=== PATIENT | male | born 1940 | race Caucasian/White ===

== ENCOUNTER 2025-01-09 23:57 | Emergency (ER) | payer MEDICARE, OTHER, SELFPAY ==
[2025-01-10 00:01] VITALS: BP 142/79; PULSE 64; RESP 14; TEMP 36.9; O2SAT 95
--- NOTE | 2025-01-10 00:29 | ED_ITS ---
HPI - Fall General Chief Complaint: Fall Stated Complaint: EYEBROW LAC S/P GLF Time Seen by Provider: 01/10/25 00:14 History of Present Illness HPI Narrative: 84-year-old male with a past medical history including advanced Alzheimer's dementia, hypertension and chronic kidney disease. Presents to the ED from his memory care facility at [facility] in a unwitnessed ground level fall. Patient sustained a small laceration to the left supraorbital region around his left eyebrow. No loss of consciousness, patient was found by nursing staff. He is not any blood thinners on the prison report and medication sheet. Patient is not complaining of any pain is acting inappropriate his normal state of health according to the son was present at bedside for collateral formation. They recently moved here from [place] and he has changed memory care unit secondary to viral and aggression outbursts at the original location. He has been acting fine and without any complaints. No reported mental status changes, blood sugar free EMS was 95. Patient has an isolated injury to his left eyebrow, previous skin tear to his left elbow that is well bandaged and healing appropriately through secondary intent. Related Data Allergies Allergy/AdvReac Type Severity Reaction Status Date / Time aspirin Allergy Unknown Unknown Verified 01/10/25 00:39 NSAIDS (Non-Steroidal Allergy Unknown Unknown Verified 01/10/25 00:39 Anti-Inflamma Review of Systems Review of Systems: ROS unobtainable: Yes unobtainable due to medical condition Exam Narrative: GENERAL: [Well-appearing, well-nourished, and in no acute distress.] HEAD: Normocephalic, left-sided supraorbital ridge laceration is approximately 1.0 cm in length, bleeding controlled with direct pressure. Musculature layer exposed but no deep tissue involvement. Clean wound. EYES: [PERRLA and EOMI.] ENT: Nares clear, no rhinorrhea or epistaxis. Mucous membranes moist. NECK: Supple. CHEST: [Clear to auscultation. No respiratory distress.] HEART: [Regular rate and rhythm]. No murmur heard. [Normal peripheral pulses.] ABDOMEN: [Soft, nondistended], [nontender], [No rigidity or guarding] EXTREMITIES: Normal range of motion. [No edema.] SKIN: Facial laceration as described above, skin tear to his left elbow that is not new, well healing with secondary intent. Granulation tissue appropriate. No wound dehiscence or signs of infection. NEURO: [No focal deficits]. Alert and oriented at his baseline, opening his eyes, pupils are equal reactive, answers questions. PSYCH: [Normal mood and affect.] Course Vital Signs Vital signs: Vital Signs Temperature 98.5 F 01/10/25 00:01 Pulse Rate 64 01/10/25 00:01 Respiratory Rate 14 01/10/25 00:01 Blood Pressure 142/79 H 01/10/25 00:01 Pulse Oximetry 95 01/10/25 00:01 Temperature 98.5 F 01/10/25 00:01 Pulse Rate 64 01/10/25 00:01 Respiratory Rate 14 01/10/25 00:01 Blood Pressure 142/79 H 01/10/25 00:01 Pulse Oximetry 95 01/10/25 00:01 Procedures Laceration Laceration 1: Date: 01/10/25 Time: 01:54 Site: face Side (If applicable): left Size (cm): 1.0 Description: linear Depth: simple, single layer Local Anesthetic: lidocaine 1% Amount of anesthesia used (mL): 3 Pre-repair: wound explored, irrigated and deep structures intact ====== Skin Level ====== ====== Subcutaneous Layer ====== Subcutaneous layer closed with: chromic gut Size: 5-0 Number of sutures: 1 Technique: running ====== Muscle Layer ====== ====== Tendon Layer ====== MDM - Fall MDM Narrative Medical decision making narrative: 84-year-old male with history of advanced dementia, hypertension, chronic kidney disease. Presents with a ground level fall with laceration to his left eyebrow. Bleeding controlled with direct pressure. Patient is acting appropriately and at his baseline mentation. He is responding to questions and opening his eyes. Family is at bedside states that this is his normal mental exam without any concern changes today. He has been doing well at his new memory care facility otherwise. Did also have a recent fall with left elbow injury and skin tear that is well healing. He has normal vital signs here no tachycardia, fever or hypoxia. His examination shows the 1 cm laceration to his left eyebrow, healing skin tear, no new or obvious focal deficits, at his baseline mentation. Suspicion for intracranial pathology is low but given his age and risk factors after evaluate for skull fracture, intraparenchymal injury, brain bleed. He has not any blood thinners. CT of the head and cervical spine was ordered. He was tetanus was up-to-date here. Wound will be repaired with 5-0 Vicryl suture after analgesia obtained with lidocaine gel. CT scan showed no intracranial hemorrhage, mass effect, herniation or acute intracranial findings. CT of the cervical spine shows no acute cervical abnormalities. He has a mild endplate deformity of T3 which does not appear acute. Patient is neurovascular intact, able to ambulate here in the emergency department, patient's pain is under control and laceration was repaired at bedside. Family is comfortable driving him home. Patient's family's questions were answered and he was given discharge instructions and return instructions on his wound. Medical Records Attestation: I reviewed the patient's medical records. Imaging Data Attestation: I personally reviewed and interpreted this imaging study as follows: Radiologist's impression: No acute intracranial process. No acute cervical spine fracture. Age indeterminate mild endplate wedging of T3 Discharge Plan Discharge Clinical Impression: Ground-level fall, CHI (closed head injury), Laceration of eyebrow, left, Dementia Patient Disposition: NH Halfway/Asst Living Condition: Stable Instructions: Antibiotic Form, Laceration (ED), Head Injury (ED), Care For Your Absorbable Stitches (ED) Additional Instructions: You have a small laceration of the left eyebrow that was repaired with absorbable stitches. CT scan shows no intracranial process. Normal CT cervical spine. There is some mild endplate wedging of T3 which does not appear new. Follow-up for wound check in 10-14 days and suture removal. Tylenol and ibuprofen for any residual pain. Return with any new or worsening concerns. Patient Language: [place] Arabian Follow-up/Referrals: Yuliet,Brody Dacosta MD [Primary Care Provider] - Stand Alone Forms: Group Home Discharge Time of Disposition: 01:55
--- OUTSIDE RECORDS SUMMARY | 2025-01-10 00:33 | XMS_ITS | Encounter Summary ---
Author Organization [facility] - [facility] Address [facility] [place] [address] Care Team Providers Care Data Warehouse Developer Name Role Phone Brody Horvath MD Primary Care Provider [phone] Encounter Details Date Type Department Care Team (Late st Contact Info) Description 10/22/2024 MyChart Message Enc [facility] Medical Group Family Medicine - [place] [address] [place] [address] Brody Horvath MD [address] [facility] [address] [place], [place] [id number] Follow Up from Nov 06fall & Letters Request Social History Tobacco Use Types Packs/Day Years Used Date Smoking Tobacco: Former Cigarettes 1 4 0 11/14/1957 - 11/14/1961 Passive Smoke Exposure: Past Smokeless Tobacco: Former Alcohol Use Standard Drinks/Week Comments Not Currently 0 (1 standard drink = 0.6 oz pur e alcohol) PHQ-2 Answer Date Recorded Patient Health Questionnaire-2 Score 0 05/28/2024 Sex and Gender Information Value Date Recorded Sex Assigned at Male 12/06/2024 2:24 PM PRESS OPERATOR INSTANT PRINT SHOP Legal Sex Male 7:33 PM CDT Gender Identity Male 12/10/2024 10:37 AM PRESS OPERATOR INSTANT PRINT SHOP Sexual Orientation Straight 12/10/2024 10 :37 AM PRESS OPERATOR INSTANT PRINT SHOP documented as of this encounter Plan of Treatment Not on file documented as of this encounter Visit Diagnoses Not on filedocumented in this encounter Care Teams Data Warehouse Developer Relationship Specialty Start Date End Date Brody Horvath MD [address] [facility] [address] [place] [address] PCP - General FAMILY PRACTICE 01/27/23 documented as of this encounter
--- OUTSIDE RECORDS SUMMARY | 2025-01-10 00:33 | XMS_ITS | Encounter Summary ---
Author Organization [facility] - [facility] Address [facility] [place] [address] Care Team Providers Care Game Trapper Name Role Phone Brody Horvath MD Primary Care Provider [phone] Encounter Details Date Type Department Care Team (Late st Contact Info) Description 01/03/2024 MyChart Message Enc [facility] Medical [facility] Family Medicine - [place] [address] [address] [place] [phone] Brody Horvath MD [address] [facility] [place] [address] [place], [place] [phone] Letters Social History Tobacco Use Types Packs/Day Years Used Date Smoking Tobacco: Former Cigarettes 1 4 0 11/14/1957 - 11/14/1961 Passive Smoke Exposure: Past Smokeless Tobacco: Former Alcohol Use Standard Drinks/Week Comments Not Currently 0 (1 standard drink = 0.6 oz pur e alcohol) PHQ-2 Answer Date Recorded Patient Health Questionnaire-2 Score 0 05/27/2023 Sex and Gender Information Value Date Recorded Sex Assigned at Male 12/06/2024 2:24 PM PREVENTIVE MAINTENANCE ENGINEER Legal Sex Male 7:33 PM CDT Gender Identity Male 12/10/2024 10:37 AM PREVENTIVE MAINTENANCE ENGINEER Sexual Orientation Straight 12/10/2024 10 :37 AM PREVENTIVE MAINTENANCE ENGINEER documented as of this encounter Plan of Treatment Not on file documented as of this encounter Visit Diagnoses Not on filedocumented in this encounter Care Teams Game Trapper Relationship Specialty Start Date End Date Brody Horvath MD [address] [facility] [address] [place] [address] PCP - General FAMILY PRACTICE 01/27/23 documented as of this encounter
--- OUTSIDE RECORDS SUMMARY | 2025-01-10 00:33 | XMS_ITS | Encounter Summary ---
Author Organization [facility] Address [facility] [place] [address] Care Team Providers Care Hazardous Substances Engineer Name Role Phone Brody Horvath MD Primary Care Provider [phone] Encounter Details Date Type Department Care Team (Late st Contact Info) Description 12/06/2024 MyChart Message Enc [facility] Medical [facility] Family Medicine - [place] [address] [facility] [place] [address] Brody Horvath MD [address] [facility] [address] [place], [place] [phone] Juan Dwyer status update Social History Tobacco Use Types Packs/Day Years [...] Sex Assigned at Male 12/06/2024 2:24 PM AUTOMOTIVE POWER ELECTRONICS ENGINEER Legal Sex Male 7:33 PM CDT Gender Identity Male 12/10/2024 10:37 AM AUTOMOTIVE POWER ELECTRONICS ENGINEER Sexual Orientation Straight 12/10/2024 10 :37 AM AUTOMOTIVE POWER ELECTRONICS ENGINEER documented as of this encounter Plan of Treatment Not on file documented as of this encounter Visit Diagnoses Not on filedocumented in this encounter Care Teams Hazardous Substances Engineer Relationship Specialty Start Date End Date Brody Horvath MD [address] [facility] [address] [place] [address] PCP - General FAMILY PRACTICE 01/27/23 documented as of this encounter
--- OUTSIDE RECORDS SUMMARY | 2025-01-10 00:33 | XMS_ITS | Encounter Summary ---
Author Organization [facility] - [facility] Address [facility] [place] [address] Care Team Providers Care Jailer Chief Name Role Phone Brody Horvath MD Primary Care Provider [phone] Encounter Details Date Type Department Care Team (Late st Contact Info) Description 11/12/2024 MyChart Message Enc [facility] Medical Group Family Medicine - [place] [address] [facility] [place] [phone] Brody Horvath MD [address] [facility] [address] [place], [place] [phone] UA request Social History Tobacco Use Types Packs/Day Years [...] Sex Assigned at Male 12/06/2024 2:24 PM PRODUCTION CONTROL COORDINATING CLERK Legal Sex Male 7:33 PM CDT Gender Identity Male 12/10/2024 10:37 AM PRODUCTION CONTROL COORDINATING CLERK Sexual Orientation Straight 12/10/2024 10 :37 AM PRODUCTION CONTROL COORDINATING CLERK documented as of this encounter Plan of Treatment Not on file documented as of this encounter Visit Diagnoses Not on filedocumented in this encounter Care Teams Jailer Chief Relationship Specialty Start Date End Date Brody Horvath MD [address] [facility] [address] [place] [address] PCP - General FAMILY PRACTICE 01/27/23 documented as of this encounter
--- OUTSIDE RECORDS SUMMARY | 2025-01-10 00:33 | XMS_ITS | Clinical Summary ---
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 90 tablet 3 3 Active atorvastatin (LIPITOR) 10 MG tabletIndications:M ixed hyperlipidemia Take 0.5 tablets (5 mg total) by mouth nightly at bedtime. 45 tablet 3 3 Active losartan (COZAAR) 100 MG tabletIndications:H ypertension, benign Take 1 tablet (100 mg total) by mouth daily. 90 tablet 3 3 Active famotidine (PEPCID) 20 MG tabletIndications:G astroesophageal reflux disease without esophagitis Take 1 tablet (20 mg total) by mouth 2 (two) times daily. 180 tablet 3 3 Active verapamil ER (VERELAN PM) 240 MG 24 hr capsuleIndications: Hypertension, benign Take 1 capsule (240 mg total) by mouth nightly at bedtime. at bedtime. 90 capsule 3 3 Active Multiple Vitamin (MULTIVITAMIN ADULT) TabIndications:Mode rate Alzheimer's dementia without behavioral disturbance, psychotic disturbance, mood disturbance, or anxiety, unspecified timing of dementia onset ([facility] HHS/HCC) Take 1 Units by mouth daily. 90 tablet 3 3 Active memantine (NAMENDA) 5 MG tabletIndications:M oderate Alzheimer's dementia without behavioral disturbance, psychotic disturbance, mood disturbance, or anxiety, unspecified timing of dementia onset ([facility] HHS/[facility]),Cerebral atrophy ([facility]) Take 1 tablet (5 mg total) by mouth 2 (two) times daily. 180 tablet 3 3 Active albuterol sulfate HFA 108 (90 Base) MCG/ACT inhalerIndications: Pneumonia Inhale 2 puffs into the lungs every 4 (four) hours as needed for Wheezing. 18 g 4 Active acetaminophen (TYLENOL) 325 MG tablet Take 2 tablets (650 mg total) by mouth every 6 (six) hours as needed for Pain. Active ferrous sulfate, 65 mg elemental, 325 (65 FE) MG tabletIndications:M oderate Alzheimer's dementia without behavioral disturbance, psychotic disturbance, mood disturbance, or anxiety, unspecified timing of dementia onset ([facility] HHS/[facility]) Take 1 tablet (325 mg total) by mouth every other day. 45 tablet 3 4 11/12/20 25 Active escitalopram (LEXAPRO) 10 MG tabletIndications:M oderate episode of recurrent major depressive disorder ([facility] HHS/[facility]) Take 1 tablet (10 mg total) by mouth daily. 90 tablet 3 4 11/12/20 25 Active Active Problems Problem Noted Date Diagnosed Date CKD stage 3a, GFR 45-59 ml/min ([facility]) 11/12/2024 Mixed stress and urge urinary incontinence 11/12 Cerebral atrophy 01/27/2023 Atherosclerosis of aorta 01/27/2023 Moderate episode of recurren t major depressive disorder ([facility] HHS/[facility]) 01/27/2023 DDD (degenerative disc disease), lumbar 01/28/20 23 Moderate Alzheimer's dementi a without behavioral disturbance, psychotic disturbance, mood disturbance, or anxiety, unspecified timing of dementia onset ([facility]) 07/30/2021 Overview (01/27/2023): Last Assessment & Plan: Significant progression per cognitive testing and history. - No medication changes; discussed potential for namenda, declined. Implications: - Needs to be accompanied to all medical appointments. - Use weekly pill brand planner for ensured compliance. Would benefit from pill packing from the pharmacy. Information provided. Recommend once daily medication administration for ease and compliance. - Utilize white board and calendar to help with daily routine. - Family should assist and provide oversight with finances. Okay to have small amounts of money without supervision, but at risk for scams. - Uses dementia friendly phone which limits incoming calls; ensure on do not call registry. - Driving cessation required. Letter faxed to the [employer]. Juan is very upset about this decision and does not agree. Plan to continue living at home with his . Okay to be home alone for short periods of time; would not be safe left home overnight alone. - Will need grocery delivery. Meals on Wheels is another good option. Family willing to help set up services. - Needs transportation options. Brain Health recommendations: - MIND diet - Physical exercise 30 min/day 5x/week - Regular mental stimulation - Stay socially engaged - Ensure adequate sleep - Manage all other health conditions Compensatory strategies for patient and caregiver discussed. Information from [facility] provided for local resources and support groups. - Referral form for 1:1 meeting completed and sent. Follow-up in clinic in 3 months or sooner if needed. Atherosclerosis of both carotid arteries 019 Overview (01/27/2023): No stenosis. He is already on a statin. 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 GERD (gastroesophageal reflux disease) 8 AVM (arteriovenous malformation) ([facility]) 07/07 Overview (01/27/2023): Had iron deficiency anemia due to this; is on iron supplement. Gout 05/15/2009 Overview (01/27/2023): with tophi Hypertension, benign 05/15/2009 Mixed hyperlipidemia 05/15/2009 Personal history of colonic polyps 05/15/2009 Resolved Problems Problem Noted Date Diagnosed Date Resolved Date Current mild episode of rik r depressive disorder without prior episode 10/14/2022 3 Overview (01/27/2023): Last Assessment & Plan: Psychological condition is stable. Continue current treatment regimen. Psychological condition will be reassessed in 3 months. Daughter is calling every day to check in with Juan and . Mood is stable. Will continue at current dose and reassess increasing at next appt. Education provided on routine and possibility for overstimulation whenever it is disrupted or having additional visitors in the home. Encounters Date Type Department Care Team Description 12/21/2024 Scan [facility] Scanned, Doc Med Group 12/18/2024 Telephone [facility] [address], [address] [place] [phone] Brody Horvath MD Clarification 12/12/2024 Scan [facility] Scanned, Doc Med Group 12/07/2024 MyChart Message Enc [facility] [address], [address] [place] [phone] Brody Horvath MD Jim Novy relocation 12/06/2024 3:00 PM DRIVING INSTRUCTOR - 12/06/2024 8:35 PM DRIVING INSTRUCTOR Emergency [facility] [place] [address] Cheryl Duncan MD Fall Discharge Disposition: Home or Self Care (Routine Discharge) 12/06/2024 Travel 12/06/2024 MyChart Message Enc [facility] [address], [address] [facility] [place] [phone] Brody Horvath MD Jim Yuliya status update 12/05/2024 Scan [facility] INFO [facility] Scanned, Doc Med Group 11/28/2024 Scan [facility] Scanned, Doc Med Group 11/28/2024 MyChart Message Enc [facility] [address] [place] [phone] Guillermo Cheatham MD Question about Upcoming Appointment 11/27/2024 Scan [facility] Scanned, Doc Med Group 11/26/2024 Scan [facility] Scanned, Doc Med Group 11/24/2024 Scan [facility] Scanned, Doc Med Group 11/16/2024 Scan [facility] Scanned, Doc Med Group 11/15/2024 Telephone [facility] [address], [address] [place] [phone] Brody Horvath MD Error 11/13/2024 10:20 AM DRIVING INSTRUCTOR Allied Health/Nurse Visit [facility] [address], [address] [place] [address] Brody Horvath MD Allied Health Visit 11/13/2024 Telephone [facility] [address], [address] [place] [address] Brody Horvath MD Results (Chest Xray ) 11/12/2024 4:17 PM DRIVING INSTRUCTOR - 11/12/2024 11:59 PM DRIVING INSTRUCTOR Hospital Encounter [facility] [address] [address] Brody Horvath MD Discharge Disposition: Home or Self Care (Routine Discharge) 11/12/2024 2:20 PM DRIVING INSTRUCTOR Office Visit [facility] [address], [address] [place] [phone] Brody Horvath MD Lethargic (Everything started between Tuesday and Tuesday); Fatigue; Fever (Did have a random fever of 101, given tylenol and it brought it down. ); Fall (Back first october) 11/12/2024 - 11/12/2024 4:16 PM DRIVING INSTRUCTOR Hospital Encounter [facility] [address] [place] [address] Brody Horvath MD Discharge Disposition: Home or Self Care (Routine Discharge) 11/12/2024 Travel 11/12/2024 MyChart Message Enc [facility] [address], [address] [place] [phone] Brody Horvath MD UA request 11/11/2024 Scan [facility] Scanned, Doc Med Group 10/22/2024 MyChart Message Enc [facility] [address], [address] [place] [phone] Brody Horvath MD Letters Request 10/22/2024 MyChart Message Enc [facility] [address], [address] [place] [phone] Brody Horvath MD Follow Up from Nov 06 Fall & Letters Request 10/18/2024 11:53 AM DRIVING INSTRUCTOR - 10/18/2024 2:02 PM DRIVING INSTRUCTOR Emergency [facility] [place] [address] Nathan Rudd PA Fall Discharge Disposition: Home or Self Care (Routine Discharge) 10/18/2024 Scan [facility] Scanned, Doc Med Group 10/18/2024 Travel 10/16/2024 Scan [facility] Scanned, Doc Med Group from Last 3 Months Immunizations Name Administration Dates Next Due Dtap (Generic) 09/06/2018 Influenza (Generic) 08/11/2019 Influenza Adult (Generic) 08/22/2023,09/2022,07/16/2022,2020,07/22/2021,07/22/2020,07/28/2018,1 ,08/16/2017,08/28/2016, 015,07/25/2013,08/28/2012,08/05/2011 MODERNA COVID-19 (MOTORCYCLE ASSEMBLER YOGESH DIA), MRNA, LNP-S, PF, 50 MCG/ 0.25 ML DOSE 02/18/2022 PFIZER COVID-19 (ORIGINAL FORMULATION, PURPLE CAP) mRNA, LNP-S, PF, 30 MCG/0.3 ML DOSE 08/08/2021 PFIZER COVID-19 BIVALENT (12 +) mRNA, LNP-S, PF, 30 MCG/0.3 ML DOSE 08/24/2022 Pneumococcal (Pneumovax 23) 01/10/2020 Pneumococcal (Prevnar 13) 05/19/2015 Pneumococcal(Ppv 23)Aka Pneumovax 11/14/2006 Td 05/20/2013,04/06/2010,11/14/2003 Tdap (Generic) 09/06/2018 Family History Medical History Relation Comments Diabetes Father Leukemia Mother Breast Cancer Sister Relation Status Comments Father Mother Sister Social History Tobacco Use Types Packs/Day Years Used Date Smoking Tobacco: Former Cigarettes 1 4 0 11/14/1957 - 11/14/1961 Passive Smoke Exposure: Past Smokeless Tobacco: Former Tobacco Cessation:Counseling Given: Not Answered Alcohol Use Standard Drinks/Week Comments Not Currently 0 (1 standard drink = 0.6 oz pur e alcohol) PHQ-2 Answer Date Recorded Patient Health Questionnaire-2 Score 0 05/28/2024 Sex and Gender Information Value Date Recorded Sex Assigned at Male 12/06/2024 2:24 PM DRIVING INSTRUCTOR Legal Sex Male 7:33 PM CDT Gender Identity Male 12/10/2024 10:37 AM DRIVING INSTRUCTOR Sexual Orientation Straight 12/10/2024 10 :37 AM DRIVING INSTRUCTOR Last Filed Vital Signs Vital Sign Reading Time Taken Comments Blood Pressure 126/63 12/06/2024 6:10 PM DRIVING INSTRUCTOR Pulse 59 12/06/2024 6:10 PM DRIVING INSTRUCTOR Temperature 36.1 C (97 F) 12/06/2024 1:42 PM DRIVING INSTRUCTOR Respiratory Rate 18 12/06/2024 6:10 PM DRIVING INSTRUCTOR Oxygen Saturation 98% 12/06/2024 6:10 PM DRIVING INSTRUCTOR Inhaled Oxygen Concentration - - Weight 81.6 kg (180 lb) 12/06/2024 1:42 PM DRIVING INSTRUCTOR Height 182.9 cm (6') 12/06/2024 1:42 PM DRIVING INSTRUCTOR Body Mass Index 24.41 12/06/2024 1:42 PM DRIVING INSTRUCTOR Plan of Treatment Health Maintenance Due Date Last Done Comments ASCVD LDL 1940 ASCVD Statin 1940 Zoster Vaccines (1 of 2) 1989 Annual Medicare Wellness Visit 2004 RSV Immunization or 60+ Years (1 - 1-dose 75+ series) 2014 COVID-19 Vaccine ( season) 2024 08/24/2022, 02/18/2022, 08/08/2021 Influenza Adult (#1) 2024 08/22/2023, 08/24/2022, 07/16/2022, Additional history exists PHQ-2 (Physician Sayre) 11/14/2024 05/28/2024 DTaP, Tdap and Td Vaccines (3 - Td or Tdap) 09/06/2028 09/06/2018, 09/06/2018, 05/20/2013, Additional history exists Pneumococcal Vaccine: 65+ Years Completed 01/10/2020, 05/19/2015, 11/14/2006 Meningococcal B Vaccine Aged Out No l onger eligible based on patient's age to complete this topic Meningococcal Vaccine Aged Out No reyes donato eligible based on patient's age to complete this topic RSV Immunizations Under 20 Months Aged Out No longer eligible based on patient's age to complete this topic Procedures Procedure Name Priority Date/Time Associated Diagnosis Comments HC URINALYSIS AUTO W/O MICRO STAT 12/06/2024 4:04 PM DRIVING INSTRUCTOR ECG 12-LEAD STAT 12/06/2024 3:19 PM DRIVING INSTRUCTOR TROPONIN, QUANT STAT 12/06/2024 3:11 PM DRIVING INSTRUCTOR CK (CPK) STAT 12/06/2024 3:11 PM DRIVING INSTRUCTOR COMPREHENSIVE METABOLIC PANEL STAT 12/06/2024 3:11 PM DRIVING INSTRUCTOR CBC W/DIFF AUTOMATED STAT 12/06/2024 3:[address] CERV SPINE WO CON STAT 12/06/2024 3:[address] HEAD WO CON STAT 12/06/2024 3:00 PM DRIVING INSTRUCTOR URINALYSIS AUTO DIP Routine 11/13/2024 Dysuria Lethargic XR CHEST PA+LAT STAT 11/12/2024 4:28 PM DRIVING INSTRUCTOR Acute cough COLLECTION VENOUS BLOOD VENIPUNCTURE Routine 11/12/2024 3:39 PM DRIVING INSTRUCTOR Dysuria Lethargic Moderate episode of recurrent major depressive disorder (CMS/HCC HHS/HCC) Atherosclerosis of aorta (CMS/HCC) Moderate Alzheimer's dementia without behavioral disturbance, psychotic disturbance, mood disturbance, or anxiety, unspecified timing of dementia onset (CMS/HCC HHS/HCC) Atherosclerosis of both carotid arteries Cerebral atrophy (CMS/HCC) Idiopathic chronic gout of multiple sites without tophus Mixed hyperlipidemia Hypertension, benign Unsteady gait CKD stage 3a, GFR 45-59 ml/min (CMS/HCC HHS/HCC) Mixed stress and urge urinary incontinence Healthcare maintenance Screening for diabetes mellitus (DM) Elevated LFTs Acute cough THYROXINE, FREE (FT4) Routine 11/12/2024 3:39 PM DRIVING INSTRUCTOR CBC W/DIFF AUTOMATED Routine 11/12/2024 3:39 PM DRIVING INSTRUCTOR Dysuria Lethargic Moderate episode of recurrent major depressive disorder (CMS/HCC HHS/HCC) Atherosclerosis of aorta (CMS/HCC) Moderate Alzheimer's dementia without behavioral disturbance, psychotic disturbance, mood disturbance, or anxiety, unspecified timing of dementia onset (CMS/HCC HHS/HCC) Atherosclerosis of both carotid arteries Cerebral atrophy (CMS/HCC) Idiopathic chronic gout of multiple sites without tophus Mixed hyperlipidemia Hypertension, benign Unsteady gait CKD stage 3a, GFR 45-59 ml/min (CMS/HCC HHS/HCC) Mixed stress and urge urinary incontinence Healthcare maintenance Screening for diabetes mellitus (DM) Elevated LFTs COMPREHENSIVE METABOLIC PANEL Routine 11/12/2024 3:39 PM DRIVING INSTRUCTOR Dysuria Lethargic Moderate episode of recurrent major depressive disorder (CMS/HCC HHS/HCC) Atherosclerosis of aorta (CMS/HCC) Moderate Alzheimer's dementia without behavioral disturbance, psychotic disturbance, mood disturbance, or anxiety, unspecified timing of dementia onset (CMS/HCC HHS/HCC) Atherosclerosis of both carotid arteries Cerebral atrophy (CMS/HCC) Idiopathic chronic gout of multiple sites without tophus Mixed hyperlipidemia Hypertension, benign Unsteady gait CKD stage 3a, GFR 45-59 ml/min (CMS/HCC HHS/HCC) Mixed stress and urge urinary incontinence Healthcare maintenance Screening for diabetes mellitus (DM) Elevated LFTs TSH W/REFLEX Routine 11/12/2024 3:39 PM DRIVING INSTRUCTOR Dysuria Lethargic Moderate episode of recurrent major depressive disorder (CMS/HCC HHS/HCC) Atherosclerosis of aorta (CMS/HCC) Moderate Alzheimer's dementia without behavioral disturbance, psychotic disturbance, mood disturbance, or anxiety, unspecified timing of dementia onset (CMS/HCC HHS/HCC) Atherosclerosis of both carotid arteries Cerebral atrophy (CMS/HCC) Idiopathic chronic gout of multiple sites without tophus Mixed hyperlipidemia Hypertension, benign Unsteady gait CKD stage 3a, GFR 45-59 ml/min (CMS/HCC HHS/HCC) Mixed stress and urge urinary incontinence Healthcare maintenance Screening for diabetes mellitus (DM) Elevated LFTs VITAMIN B-12 Routine 11/12/2024 3:39 PM DRIVING INSTRUCTOR Dysuria Lethargic Moderate episode of recurrent major depressive disorder (CMS/HCC HHS/HCC) Atherosclerosis of aorta (CMS/HCC) Moderate Alzheimer's dementia without behavioral disturbance, psychotic disturbance, mood disturbance, or anxiety, unspecified timing of dementia onset (CMS/HCC HHS/HCC) Atherosclerosis of both carotid arteries Cerebral atrophy (CMS/HCC) Idiopathic chronic gout of multiple sites without tophus Mixed hyperlipidemia Hypertension, benign Unsteady gait CKD stage 3a, GFR 45-59 ml/min (CMS/HCC HHS/HCC) Mixed stress and urge urinary incontinence Healthcare maintenance Screening for diabetes mellitus (DM) Elevated LFTs GGT, GAMMA GLUTAMYLTRANSFERASE Routine 11/12/2024 3:39 PM DRIVING INSTRUCTOR Dysuria Lethargic Moderate episode of recurrent major depressive disorder ([facility]/HCC HHS/HCC) Atherosclerosis of aorta (CMS/HCC) Moderate Alzheimer's dementia without behavioral disturbance, psychotic disturbance, mood disturbance, or anxiety, unspecified timing of dementia onset ([facility]/HCC HHS/HCC) Atherosclerosis of both carotid arteries Cerebral atrophy ([facility]/HCC) Idiopathic chronic gout of multiple sites without tophus Mixed hyperlipidemia Hypertension, benign Unsteady gait CKD stage 3a, GFR 45-59 ml/min ([facility]/HCC HHS/HCC) Mixed stress and urge urinary incontinence Healthcare maintenance Screening for diabetes mellitus (DM) Elevated LFTs URIC ACID BLOOD Routine 11/12/2024 3:39 PM DRIVING INSTRUCTOR Dysuria Lethargic Moderate episode of recurrent major depressive disorder ([facility]/HCC HHS/HCC) Atherosclerosis of aorta ([facility]/HCC) Moderate Alzheimer's dementia without behavioral disturbance, psychotic disturbance, mood disturbance, or anxiety, unspecified timing of dementia onset ([facility]/HCC HHS/HCC) Atherosclerosis of both carotid arteries Cerebral atrophy (CMS/HCC) Idiopathic chronic gout of multiple sites without tophus Mixed hyperlipidemia Hypertension, benign Unsteady gait CKD stage 3a, GFR 45-59 ml/min ([facility] HHS/HCC) Mixed stress and urge urinary incontinence Healthcare maintenance Screening for diabetes mellitus (DM) Elevated LFTs Acute cough ECG 12-LEAD Routine 10/18/2024 12:27 PM DRIVING INSTRUCTOR HC URINALYSIS AUTO W/O MICRO STAT 10/18/2024 12:10 PM DRIVING INSTRUCTOR TROPONIN, QUANT STAT 10/18/2024 12:10 PM DRIVING INSTRUCTOR COMPREHENSIVE METABOLIC PANEL STAT 10/18/2024 12:10 PM DRIVING INSTRUCTOR CBC W/DIFF AUTOMATED STAT 10/18/2024 12:[address] CERV SPINE WO CON STAT 10/18/2024 11:[address] HEAD WO CON STAT 10/18/2024 11:57 AM DRIVING INSTRUCTOR from Last 3 Months Results * (ABNORMAL) URINALYSIS (12/06/2024 4:04 PM DRIVING INSTRUCTOR) Only the most recent of2 resultswithin the time period is included. SPECIMEN TYPE URINE CLEAN CATCH 12/06/2024 4:05 PM DRIVING INSTRUCTOR [facility] COLOR (U) YELLOW 12/06/2024 4:36 PM DRIVING INSTRUCTOR [facility] TRANSPARENCY CLEAR 12/06/2024 4:36 PM [facility] SPECIFIC GRAVITY (U) 1.026 1.001 - 1.030 12/06/2024 4:36 PM DRIVING INSTRUCTOR [facility] U PH 6.0 5.0 - 9.0 12/06/2024 4:36 PM [facility] LEUKOCYTES (U) 25(A) NEGATIVE 12/06/2024 4:36 PM [facility] NITRITES NEGATIVE NEGATIVE 12/06/2024 4:36 PM [facility] PROTEIN RANDOM (U) 20 <30 MG/DL 12/06/2024 4:36 PM [facility] GLUCOSE (U) NORMAL NORMAL MG/DL 12/06/2024 4:36 PM [facility] KETONES MG/DL (U) NEGATIVE NEGATIVE MG/DL 12/06/2024 4:36 PM [facility] UROBILINOGEN 6.0(A) NORMAL MG/DL 12/06/2024 4:36 PM [facility] BILIRUBIN (U) NEGATIVE NEGATIVE MG/DL 12/06/2024 4:36 PM [facility] BLOOD (U) NEGATIVE NEGATIVE 12/06/2024 4:36 PM DRIVING INSTRUCTOR [facility] MUCUS RARE /LPF 12/06/2024 4:36 PM DRIVING INSTRUCTOR [facility] WBC/HPF 5 <6 /HPF 12/06/2024 4:36 PM DRIVING INSTRUCTOR [facility] RBC/HPF 4 <6 /HPF 12/06/2024 4:36 PM DRIVING INSTRUCTOR [facility] URINE SPECIMEN OBTAINED BY CLEAN CATCH PROCEDURE / Unknown 12/06/2024 4:04 PM DRIVING INSTRUCTOR us Magdalene ALEJANDRA URINE ORDERABLES Final Result [facility] [address] [place] [address], [place] [phone] * ECG 12 lead (12/06/2024 3:19 PM DRIVING INSTRUCTOR) Only the most recent of2 resultswithin the time period is included. 12/06/2024 3:19 PM DRIVING INSTRUCTOR Narrative [facility] RAD - 12/06/2024 3:59 PM DRIVING INSTRUCTOR [address] Test Date: 2024-12-06 Pat Name: ELA DWYER Department: 41 Room: [facility] Gender: Male Vice Chancellor: [id number] : 1940 Requested By: MAGDALENE GARRIDO Order Number: [id number] Reading MD: Genesis Lee Measurements Intervals [place] Rate: 63 P: 28 WA: 221 QRS: 67 QRSD: 102 T: 17 QT: 394 QTc: 406 Interpretive Statements SINUS RHYTHM WITH FIRST DEGREE AV BLOCK Compared to ECG 10/18/2024 12:27:18 First degree AV block now present Sinus bradycardia no longer present ING INSTRUCTOR Procedure Note Genesis Lee MD - 12/06/[address] Test Date: 2024-12-06 Pat Name: ELA DWYER Department: 41 Room: [place] Gender: Male Vice Chancellor: [id number] : 1940 Requested By: MAGDALENE GARRIDO Order Number: [id number] Reading MD: Genesis Lee Measurements Intervals [place] Rate: 63 P: 28 WA: 221 QRS: 67 QRSD: 102 T: 17 QT: 394 QTc: 406 Interpretive Statements SINUS RHYTHM WITH FIRST DEGREE AV BLOCK Compared to ECG 10/18/2024 12:27:18 First degree AV block now present Sinus bradycardia no longer present ING INSTRUCTOR us Magdalene ALEJANDRA ECG ORDERABLES Final Result [facility] ([facility] RAD * (ABNORMAL) COMPREHENSIVE METABOLIC PANEL (12/06/2024 3:11 PM DRIVING INSTRUCTOR) Only the most recent of3 resultswithin the time period is included. GLUCOSE 99 70 - 99 MG/DL 12/06/2024 4:13 PM DRIVING INSTRUCTOR [facility] BUN 21(H) 7 - 18 MG/DL 12/06/2024 4:13 PM DRIVING INSTRUCTOR [facility] CREATININE S/P/B 1.33(H) 0.7 - 1.3 MG/DL 12/06/2024 4:13 PM DRIVING INSTRUCTOR [facility] SODIUM S/P/B 141 136 - 145 MMOL/L 12/06/2024 4:13 PM DRIVING INSTRUCTOR [facility] POTASSIUM S/P/B 3.6 3.5 - 5.1 MMOL/L 12/06/2024 4:13 PM [facility] CHLORIDE S/P/B 110 97 - 115 MMOL/L 12/06/2024 4:13 PM DRIVING INSTRUCTOR [facility] CO2 26.9 21 - 32 MMOL/L 12/06/2024 4:13 PM [facility] CALCIUM S/P/B 8.8 8.5 - 10.1 MG/DL 12/06/2024 4:13 PM [facility] BILIRUBIN TOTAL S/P/B 1.2 0.2 - 1.2 MG/DL 12/06/2024 4:13 PM [facility] Comment: THIS ASSAY IS NOT RECOMMENDED FOR PATIENTS UNDERGOING TREATMENT WITH ELTROMBOPAG DUE TO THE POTENTIAL FOR FALSELY ELEVATED RESULTS. TOTAL PROTEIN S/P/B 6.3(L) 6.4 - 8.2 G/DL 12/06/2024 4:13 PM [facility] ALBUMIN S/P/B 3.0(L) 3.4 - 5.0 G/DL 12/06/2024 4:13 PM [facility] AST 212(H) 15 - 37 U/L 12/06/2024 4:13 PM [facility] ALT 328(H) 16 - 60 U/L 12/06/2024 4:13 PM [facility] ALKALINE PHOSPHATASE S/P/B 223(H) 50 - 136 U/L 12/06/2024 4:13 PM [facility] ANION GAP 4.1 2 - 10 MMOL/L 12/06/2024 4:13 PM [facility] BUN CREATININE RATIO 15.8 6 - 26 12/06/2024 4:13 PM [facility] A/G RATIO 0.9(L) 1.0 - 2.0 RATIO 12/06/2024 4:13 PM [facility] GFR ESTIMATE 52(L) >90 ML/MIN/1.7 3 M2 12/06/2024 4:13 PM [facility] Comment: NOTE: eGFR is not calculated for patients <18 years of age or gender unknown. This is an estimated GFR calculation using the new CKD EPI creatinine equation without race and so does not require a correction factor for race. This estimated GFR should not be used for calculating drug doses. 12/06/2024 3:11 PM DRIVING INSTRUCTOR Magdalene ALEJANDRA LABORATORY Final Result [facility] [address] [place] [address], [place] [phone] * (ABNORMAL) CBC W/DIFF AUTOMATED (12/06/2024 3:11 PM DRIVING INSTRUCTOR) Only the most recent of3 resultswithin the time period is included. WBC 6.15 4.5 - 11.0 x10'3/uL 12/06/2024 3:36 PM DRIVING INSTRUCTOR [facility] RBC 4.23(L) 4.70 - 6.10 x10'6/uL 12/06/2024 3:36 PM DRIVING INSTRUCTOR [facility] HGB 13.3(L) 14.0 - 18.0 G/DL 12/06/2024 3:36 PM DRIVING INSTRUCTOR [facility] HCT 41.2(L) 43.0 - 54.0 % 12/06/2024 3:36 PM DRIVING INSTRUCTOR [facility] MCV 97.4(H) 80.0 - 94.0 FL 12/06/2024 3:36 PM DRIVING INSTRUCTOR [facility] MCH 31.4(H) 27.0 - 31.0 PG 12/06/2024 3:36 PM DRIVING INSTRUCTOR [facility] MCHC 32.3 32.0 - 36.0 G/DL 12/06/2024 3:36 PM DRIVING INSTRUCTOR [facility] RDW 13.6 11.5 - 14.5 % 12/06/2024 3:36 PM DRIVING INSTRUCTOR [facility] PLT 230 130 - 400 x10'3/uL 12/06/2024 3:36 PM DRIVING INSTRUCTOR [facility] MPV 9.6 9.3 - 12.2 FL 12/06/2024 3:36 PM DRIVING INSTRUCTOR [facility] DIFFERENTIAL TYPE AUTOMATED DIFFERENTIAL 12/06/2024 3:36 PM DRIVING INSTRUCTOR [facility] NEUTROPHILS % 57.8 % 12/06/2024 3:36 PM DRIVING INSTRUCTOR [facility] LYMPHOCYTES % 16.7 % 12/06/2024 3:36 PM DRIVING INSTRUCTOR [facility] MONOCYTES % 15.1 % 12/06/2024 3:36 PM [facility] EOSINOPHILS 9.1 % 12/06/2024 3:36 PM [facility] BASOPHILS 0.8 % 12/06/2024 3:36 PM DRIVING INSTRUCTOR [facility] IMMATURE GRANS % 0.5 % 12/06/19 3:36 PM [facility] ABS. NEUTROPHILS 3.55 1.80 - 7.70 x10'3/uL 12/06/2024 3:36 PM [facility] ABS. LYMPHOCYTES 1.03 1.00 - 4.80 x10'3/uL 12/06/2024 3:36 PM DRIVING INSTRUCTOR [facility] ABS. MONOCYTES 0.93(H) 0.30 - 0.82 x10'3/uL 12/06/2024 3:36 PM DRIVING INSTRUCTOR [facility] ABS. EOSINOPHILS 0.56(H) 0.04 - 0.54 x10'3/uL 12/06/2024 3:36 PM [facility] ABS. BASOPHILS 0.05 0.01 - 0.08 x10'3/uL 12/06/2024 3:36 PM DRIVING INSTRUCTOR [facility] ABS. IMMATURE GRANULOCYTES 0.03 0.00 - 0.49 x10'3/uL 12/06/2024 3:36 PM DRIVING INSTRUCTOR [facility] 12/06/2024 3:11 PM DRIVING INSTRUCTOR Magdalene ALEJANDRA LABORATORY Final Result Performing Organization Address [facility]/ZIP Co de Phone Number [facility] [address] [place] [address], [place] [phone] * TROPONIN, QUANT (12/06/2024 3:11 PM DRIVING INSTRUCTOR) Only the most recent of2 resultswithin the time period is included. TROPONIN I HIGH SENSITIVITY 4 <79 ng/L 12/06/2024 4:13 PM DRIVING INSTRUCTOR [facility] Comment: HIGH DOSES OF BIOTIN, TROPONIN-SPECIFIC AUTOANTIBODIES, AND ANTIBODY THERAPY CONTAINING HAMA MAY INTERFERE WITH THIS TEST RESULT. CORRELATION TO CLINICAL HISTORY AND PRESENTATION RECOMMENDED. 12/06/2024 3:11 PM DRIVING INSTRUCTOR Magdalene ALEJANDRA LABORATORY Final Result Performing Organization Address [facility] Co de Phone Number [facility] [address] [place] [address], [place] [phone] * CK (CPK) (12/06/2024 3:11 PM DRIVING INSTRUCTOR) CPK 40 35 - 232 U/L 12/06/2024 4:13 PM DRIVING INSTRUCTOR [facility] 12/06/2024 3:11 PM DRIVING INSTRUCTOR us Magdalenesa Evelio Garrido PA LABORATORY Final Result Performing Organization Address City/[facility]/ZIP Co de Phone Number [facility] [address] [facility] [place] [address], * CT HEAD WO CON (12/06/2024 3:00 PM DRIVING INSTRUCTOR) Only the most recent of2 resultswithin the time period is included. Anatomical Region Laterality Modality Head Computed Tomogra phy 12/06/2024 3:12 PM DRIVING INSTRUCTOR Impressions 12/06/2024 3:14 PM DRIVING INSTRUCTOR IMPRESSION: 1. No acute intracranial hemorrhage, mass effect or interval change 2. Moderate cerebral atrophy with mild chronic small vessel ischemic changes of the supratentorial white matter. MRI would be more sensitive for the detection of an acute infarct. Referred By: Interpreted By: Levy Yancey MD, 12/06/2024 3:12 PM Narrative 12/06/2024 3:14 PM DRIVING INSTRUCTOR [address] [address] EXAMINATION:Head CT without contrast 12/06/2024 INDICATION:Fall, found down TECHNIQUE: Axial CT images of the head were acquired with intravenous contrast. Sagittal coronal reformats were constructed. Radiation dose reduction techniques were used. COMPARISON: Noncontrast head CT 11/06 FINDINGS:No acute intracranial hemorrhage, mass effect or midline shift or extra-axial fluid collection There is moderate cerebral atrophy with concordant prominence of ventricles. Mild decreased attenuation is noted throughout the supratentorial white matter. No sulcal effacement or loss of gordon/white matter differentiation No acute osseous abnormality. Mild secretions are noted within the right sphenoid sinus. The mastoid air cells are clear. The orbits and globes are unremarkable. Bilateral lens replacement noted. No significant extracranial soft tissue swelling Procedure Note Levy Yancey MD - 12/06/[address] [address] EXAMINATION:Head CT without contrast 12/06/2024 INDICATION:Fall, found down TECHNIQUE: Axial CT images of the head were acquired with intravenouscontrast. Sagittal coronal reformats were constructed. Radiation dosereduction techniques were used. COMPARISON: Noncontrast head CT 11/06 FINDINGS:No acute intracranial hemorrhage, mass effect or midline shift orextra- axial fluid collection There is moderate cerebral atrophy with concordant prominence ofventricles. Mild decreased attenuation is noted throughout thesupratentorial white matter. No sulcal effacement or loss of gordon/white matter differentiation No acute osseous abnormality. Mild secretions are noted within the rightsphenoid sinus. The mastoid air cells are clear. The orbits and globesare unremarkable. Bilateral lens replacement noted. No significantextracranial soft tissue swelling IMPRESSION: 1. No acute intracranial hemorrhage, mass effect or interval change 2. Moderate cerebral atrophy with mild chronic small vessel ischemicchanges of the supratentorial white matter. MRI would be more sensitive for the detection of an acute infarct. Referred By: Interpreted By: Levy Yancey MD, 12/06/2024 3:12 PM us Magdalene ALEJANDRA CT Final Result * CT CERV SPINE WO CON (12/06/2024 3:00 PM DRIVING INSTRUCTOR) Only the most recent of2 resultswithin the time period is included. Anatomical Region Laterality Modality Spine Computed Tomogra phy 12/06/2024 3:25 PM DRIVING INSTRUCTOR Impressions 12/06/2024 3:30 PM DRIVING INSTRUCTOR IMPRESSION: 1. No acute fracture, dislocation or prevertebral edema. 2. Osteopenia with the mild to moderate multilevel degenerative changes. Referred By: Interpreted By: Levy Yancey MD, 12/06/2024 3:25 PM Narrative 12/06/2024 3:30 PM DRIVING INSTRUCTOR [address] [address] EXAMINATION:CT of the cervical spine without contrast 12/06/2024 INDICATION:Fall, found down TECHNIQUE: Axial CT images of the cervical spine were acquired without intravenous contrast. Sagittal coronal reformats were constructed. Radiation dose reduction techniques were used. COMPARISON: CT the cervical spine 10/18/2024 FINDINGS:Mineralization appears to be diffusely decreased. The cervical spine is in anatomic alignment. There is preservation of vertebral body heights and disc spaces. Lateral masses of C1 and C2 are well aligned. The dens is intact. The occipital condyles are intact. No acute fracture or dislocation. No spondylolisthesis or focal bony lesion No stenosis at the foramen magnum or C1/C2 level C2/C3: Disc space narrowing and facet arthropathy causing mild right neural foraminal stenosis C3/C4: Disc space narrowing with the 2 mm of retrolisthesis small posterior disc/osteophyte complex, uncovertebral arthropathy and facet arthropathy causing slight effacement of ventral thecal sac and moderate bilateral foraminal stenosis C4/C5: Disc space narrowing and facet arthropathy causing moderate left neural foraminal stenosis C5/C6: Disc space narrowing and facet arthropathy. C6/C7: Disc space narrowing disc bulging and facet arthropathy causing mild bilateral foraminal stenosis C7/T1: Negative No prevertebral edema. No paraspinal mass or fluid collection. The thyroid gland is small. There is linear scarring within the right pulmonary apex. Procedure Note Levy Yancey MD - 12/06/[address] [address] EXAMINATION:CT of the cervical spine without contrast 12/06/2024 INDICATION:Fall, found down TECHNIQUE: Axial CT images of the cervical spine were acquired withoutintravenous contrast. Sagittal coronal reformats were constructed.Radiation dose reduction techniques were used. COMPARISON: CT the cervical spine 10/18/2024 FINDINGS:Mineralization appears to be diffusely decreased. The cervicalspine is in anatomic alignment. There is preservation of vertebral bodyheights and disc spaces. Lateral masses of C1 and C2 are well aligned.The dens is intact. The occipital condyles are intact. No acute fracture or dislocation. No spondylolisthesis or focal bonylesion No stenosis at the foramen magnum or C1/C2 level C2/C3: Disc space narrowing and facet arthropathy causing mild rightneural foraminal stenosis C3/C4: Disc space narrowing with the 2 mm of retrolisthesis smallposterior disc/osteophyte complex, uncovertebral arthropathy and facetarthropathy causing slight effacement of ventral thecal sac and moderatebilateral foraminal stenosis C4/C5: Disc space narrowing and facet arthropathy causing moderate leftneural foraminal stenosis C5/C6: Disc space narrowing and facet arthropathy. C6/C7: Disc space narrowing disc bulging and facet arthropathy causingmild bilateral foraminal stenosis C7/T1: Negative No prevertebral edema. No paraspinal mass or fluid collection. Thethyroid gland is small. There is linear scarring within the rightpulmonary apex. IMPRESSION: 1. No acute fracture, dislocation or prevertebral edema. 2. Osteopenia with the mild to moderate multilevel degenerativechanges. Referred By: Interpreted By: Levy Yancey MD, 12/06/2024 3:25 PM us Magdalene Garrido PA CT Final Result * URINALYSIS AUTO DIP (11/13/2024) COLOR (U) YELLOW YELLOW MG-[facility] [place] TRANSPARENCY CLEAR CLEAR MG-N GR [place], [facility] GLUCOSE (U) NEGATIVE NEGATIVE MG/DL [facility] [place] BILIRUBIN (U) NEGATIVE NEGATIVE MG-N G [place], [facility] KETONES MG/DL (U) NEGATIVE NEGATIVE MG/DL [facility] [place] SPECIFIC GRAVITY (U) 1.010 1.001 - 1.035 MG-[facility] [place] BLOOD (U) NEGATIVE NEGATIVE MG[facility] [place] U PH 5.5 5.0 - 9.0 MG[facility] [place] PROTEIN (U) NEGATIVE NEGATIVE mg/dL [facility] [place] UROBILINOGEN 0.2 0.2 - 1.0 EU/dL = mg/dL MG[facility] [place], [facility] NITRITES NEGATIVE NEGATIVE MG/DL MG[facility] [place] LEUKOCYTES (U) NEGATIVE NEGATIVE MG-[facility] [place], [facility] URINE SPECIMEN FROM URETHRA / Unknown 11/13/2024 us Brody Horvath MD URINE ORDERABLES Final Result -[place] [id number] [place] [address], [place] [phone] * XR CHEST PA+LAT (11/12/2024 4:28 PM DRIVING INSTRUCTOR) Anatomical Region Laterality Modality Chest Radiographic Bettina ging 11/12/2024 4:50 PM DRIVING INSTRUCTOR Impressions 11/12/2024 4:51 PM DRIVING INSTRUCTOR IMPRESSION: No acute findings. Probable apical emphysema. Ordered By: BRODY HORVATH Interpreted By: Ignacio Fagan MD, 11/12/2024 4:50 PM Narrative 11/12/2024 4:51 PM DRIVING INSTRUCTOR [address] [address] Examination: Chest x-ray 2 view Exam date/time: 11/12/2024 4:18 PM Reason For Exam: cough Comparison: 05/01/2023 Technique: PA and lateral views of the chest were obtained. Findings: Heart size is normal. There is mild aortic tortuosity and atherosclerotic change. Calcified right superior mediastinal lymph nodes are again noted, likely related to past granulomatous infection. No pleural effusion or pneumothorax is identified. There is no focal pulmonary consolidation. Diminished vascularity is seen in the apices, probably reflecting underlying emphysema. Procedure Note Ignacio Fagan MD - 11/12/[address] [address] Examination: Chest x-ray 2 view Exam date/time: 11/12/2024 4:18 PM Reason For Exam: cough Comparison: 05/01/2023 Technique: PA and lateral views of the chest were obtained. Findings: Heart size is normal. There is mild aortic tortuosity andatherosclerotic change. Calcified right superior mediastinal lymph nodesare again noted, likely related to past granulomatous infection. Nopleural effusion or pneumothorax is identified. There is no focalpulmonary consolidation. Diminished vascularity is seen in the apices,probably reflecting underlying emphysema. IMPRESSION: No acute findings. Probable apical emphysema. Ordered By: BRODY HORVATH Interpreted By: Ignacio Fagan MD, 11/12/2024 4:50 PM Brody Horvath MD GENERAL IMAGING Final Result * (ABNORMAL) TSH W/REFLEX (11/12/2024 3:39 PM DRIVING INSTRUCTOR) TSH 5.120(H) 0.358 - 3.740 uIU/ML 11/13/2024 3:33 PM DRIVING INSTRUCTOR [facility] 11/12/2024 3:39 PM DRIVING INSTRUCTOR Brody Horvath MD LABORATORY Final Result Performing Organization Address City/[facility]/ZIP Co de Phone Number [facility] [address] [place] [address], [place] [phone] * VITAMIN B-12 (11/12/2024 3:39 PM DRIVING INSTRUCTOR) Pathologist [facility] VITAMIN B12 S/P/B 570 193 - 986 PG/ML 11/13/2024 3:33 PM DRIVING INSTRUCTOR [facility] 11/12/2024 3:39 PM DRIVING INSTRUCTOR Brody Horvath MD LABORATORY Final Result Performing Organization Address City/[facility]/ZIP Co de Phone Number [facility] [address] [place] [address], [place] [phone] * THYROXINE, FREE (FT4) (11/12/2024 3:39 PM DRIVING INSTRUCTOR) Pathologist [facility] FREE T4 0.95 0.76 - 1.46 NG/DL 11/13/2024 3:51 PM DRIVING INSTRUCTOR [facility] 11/12/2024 3:39 PM DRIVING INSTRUCTOR Brody Horvath MD LABORATORY Final Result Performing Organization Address City/[facility] Co de Phone Number [facility] [address] [place] [address], [place] [phone] * GGT, GAMMA GLUTAMYLTRANSFERASE (11/12/2024 3:39 PM DRIVING INSTRUCTOR) [facility] GGT 53 15 - 85 U/L 11/13/2024 5:37 PM DRIVING INSTRUCTOR [facility] 11/12/2024 3:39 PM DRIVING INSTRUCTOR Brody Horvath MD LABORATORY Final Result Performing Organization Address [facility] Co de Phone Number [facility] [address] [place] [address], [place] [phone] * URIC ACID BLOOD (11/12/2024 3:39 PM DRIVING INSTRUCTOR) [facility] URIC ACID 4.6 3.5 - 7.2 MG/DL 11/13/2024 2:52 PM DRIVING INSTRUCTOR [facility] 11/12/2024 3:39 PM DRIVING INSTRUCTOR Brody Horvath MD LABORATORY Final Result Performing Organization Address City/[facility] Co de Phone Number [facility] [address] [place] [address], [place] [phone] from Last [address] [place] [address] MEDICARE [facility] Advance Directives Documents on File Type Date Recorded Patient Cutter Machine Expl anation Advance Directives and Livin g Will 05/02/2023 3:03 PM 12/06/22 POLST Power of Tube And Manifold Builder 01/27/2023 1:19 PM Advance Directives and Livin g Will 12/14/2024 6:23 AM POLST Care Teams Front Of House Manager Relationship Specialty Start Date End Date Brody Horvath MD [address] [facility] [address] [place] [address] PCP - General FAMILY PRACTICE 01/27/23
--- OUTSIDE RECORDS SUMMARY | 2025-01-10 00:33 | XMS_ITS | Encounter Summary ---
Author Organization [facility] Address [facility] [place] [address] Care Team Providers Care Laborer Prestressed Concrete Name Role Phone Brody Horvath MD Primary Care Provider [phone] Encounter Details Date Type Department Care Team (Late st Contact Info) Description 05/28/2024 MyChart Message Enc [facility] Family Medicine - [place] [address] [facility], [address] [place] [phone] Brody Horvath MD [address] [facility] [address] [place], [place] [phone] Medication Expirations Social History Tobacco Use Types Packs/Day Years [...] Sex Assigned at Male 12/06/2024 2:24 PM BUSINESS FUNCTIONAL ANALYST Legal Sex Male 7:33 PM CDT Gender Identity Male 12/10/2024 10:37 AM BUSINESS FUNCTIONAL ANALYST Sexual Orientation Straight 12/10/2024 10 :37 AM BUSINESS FUNCTIONAL ANALYST documented as of this encounter Plan of Treatment Not on file documented as of this encounter Visit Diagnoses Not on filedocumented in this encounter Care Teams Laborer Prestressed Concrete Relationship Specialty Start Date End Date Brody Horvath MD [address] [facility] [address] [place] [address] PCP - General FAMILY PRACTICE 01/27/23 documented as of this encounter
--- OUTSIDE RECORDS SUMMARY | 2025-01-10 00:33 | XMS_ITS | Patient Health Record ---
Author Organization [facility] Address [address] [place], [place] [id number] Support Name Relationship Address Phone Monroe Dwyer Guarantor Unknown [phone] Reason For Referral No Information Plan Of Treatment No Information Insurance Providers Payer Name Payer Address Payer Phone Subscriber Number Group Number Insured Name Patient Relationship to Insured Coverage Start Date Coverage End Date Medicare Part B J5 WPS [address] [place] [address] [id number] Monroe Dwyer Self - patient is the insured [place] [employer] [address] [place] [address] [id number] Monroe Dwyer Self - patient is the insured
--- OUTSIDE RECORDS SUMMARY | 2025-01-10 00:33 | XMS_ITS | Encounter Summary ---
Author Organization [facility] Address [facility] [place] [address] Care Team Providers Care Utilities Estimator And Drafter Name Role Phone Brody Horvath MD Primary Care Provider [phone] Encounter Details Date Type Department Care Team (Late st Contact Info) Description 12/07/2024 MyChart Message Enc [facility] Family Medicine - [place] [address] [facility] [address], [address] [place] [address] Brody Horvath MD [address] [facility] [address] [place], [place] [phone] Juan Dwyer relocation Social History Tobacco Use Types Packs/Day Years [...] Sex Assigned at Male 12/06/2024 2:24 PM YARD TRUCK DRIVER Legal Sex Male 7:33 PM CDT Gender Identity Male 12/10/2024 10:37 AM YARD TRUCK DRIVER Sexual Orientation Straight 12/10/2024 10 :37 AM YARD TRUCK DRIVER documented as of this encounter Plan of Treatment Not on file documented as of this encounter Visit Diagnoses Not on filedocumented in this encounter Care Teams Utilities Estimator And Drafter Relationship Specialty Start Date End Date Brody Horvath MD [address] [facility] [address] [place] [address] PCP - General FAMILY PRACTICE 01/27/23 documented as of this encounter
--- OUTSIDE RECORDS SUMMARY | 2025-01-10 00:33 | XMS_ITS | Encounter Summary ---
Author Organization [facility] Address [facility] [place] [address] Care Team Providers Care Metal Furniture Panel Coverer Name Role Phone Brody Horvath MD Primary Care Provider [phone] Encounter Details Date Type Department Care Team (Late st Contact Info) Description 05/02/2023 MyChart Message Enc [facility] Family Medicine - [place] [address] [place] [address] Brody Horvath MD [address] [facility] [address] [place], [place] [phone] Juan Dwyer ER visit Social History Tobacco Use Types Packs/Day Years Used Date Smoking Tobacco: Former Cigarettes 1 4 0 11/14/1957 - 11/14/1961 Passive Smoke Exposure: Past Smokeless Tobacco: Never Alcohol Use Standard Drinks/Week Comments Not Currently 0 (1 standard drink = 0.6 oz pur e alcohol) PHQ-2 Answer Date Recorded Patient Health Questionnaire-2 Score 0 01/27/2023 Sex and Gender Information Value Date Recorded Sex Assigned at Male 12/06/2024 2:24 PM WELL FLOW OPERATOR Legal Sex Male 7:33 PM CDT Gender Identity Male 12/10/2024 10:37 AM WELL FLOW OPERATOR Sexual Orientation Straight 12/10/2024 10 :37 AM WELL FLOW OPERATOR COVID-19 Exposure Response Date Recorded In the last 10 days, have yo u been in contact with someone who was confirmed or suspected to have Coronavirus/COVID-19? No / Unsure 04/06/2023 1:13 PM CDT documented as of this encounter Plan of Treatment Not on file documented as of this encounter Visit Diagnoses Not on filedocumented in this encounter Care Teams Metal Furniture Panel Coverer Relationship Specialty Start Date End Date Brody Horvath MD [address] [address] PCP - General FAMILY PRACTICE 01/27/23 documented as of this encounter
--- OUTSIDE RECORDS SUMMARY | 2025-01-10 00:33 | XMS_ITS | Encounter Summary ---
Author Organization [facility] Address [facility] [place] [address] Care Team Providers Care Job Development Specialist Name Role Phone Brody Horvath MD Primary Care Provider [phone] Encounter Details Date Type Department Care Team (Late st Contact Info) Description 10/22/2024 MyChart Message Enc [facility] Family Medicine - [place] [address] [facility], [address] [place] [id number] Brody Horvath MD [address] [facility] [address] [place] [address] Letters Request Social History Tobacco Use Types [...] Sex Assigned at Male 12/06/2024 2:24 PM SHIP PILOT Legal Sex Male 7:33 PM CDT Gender Identity Male 12/10/2024 10:37 AM SHIP PILOT Sexual Orientation Straight 12/10/2024 10 :37 AM SHIP PILOT documented as of this encounter Plan of Treatment Not on file documented as of this encounter Visit Diagnoses Not on filedocumented in this encounter Care Teams Job Development Specialist Relationship Specialty Start Date End Date Brody Horvath MD [address] [facility] [address] [place] [address] PCP - General FAMILY PRACTICE 01/27/23 documented as of this encounter
--- OUTSIDE RECORDS SUMMARY | 2025-01-10 00:33 | XMS_ITS | Encounter Summary ---
Author Organization [facility] Address [facility] [place] [address] Care Team Providers Care Wood Barrel Reconditioner Name Role Phone Brody Horvath MD Primary Care Provider [phone] Encounter Details Date Type Department Care Team (Late st Contact Info) Description 05/02/2023 MyChart Message Enc [facility] Family Medicine - [place] [address] [facility], [address] [place] [address] Brody Horvath MD [address] [facility] [address] [place], [place] [id number] Juan's situation Social History Tobacco Use Types Packs/Day Years [...] Sex Assigned at Male 12/06/2024 2:24 PM GM Legal Sex Male 7:33 PM CDT Gender Identity Male 12/10/2024 10:37 AM GM Sexual Orientation Straight 12/10/2024 10 :37 AM GM COVID-19 Exposure Response Date Recorded In the last 10 days, have yo u been in contact with someone who was confirmed or suspected to have Coronavirus/COVID-19? No / Unsure 04/06/2023 1:13 PM CDT documented as of this encounter Plan of Treatment Not on file documented as of this encounter Visit Diagnoses Not on filedocumented in this encounter Care Teams Wood Barrel Reconditioner Relationship Specialty Start Date End Date Brody Horvath MD [address] [address] [place] [address] PCP - General FAMILY PRACTICE 01/27/23 documented as of this encounter
[2025-01-10] MEDS: TETANUS,DIPHTHERIA,AC PERTUSSIS ADULT (0.5 ML) BOOSTRIX IM (02:09)
[2025-01-10 02:44] VITALS: BP 136/81; PULSE 69; RESP 17; O2SAT 98
--- NOTE | 2025-01-10 02:51 | PC.NURSE ---
This RN spoke with Oni Lyon and updated about pt POC and arrival to facility
== END 2025-01-10 02:51 ==
PROVIDERS: Emergency Provider Student in an Organized Health Care Education/Training Program; PCP Family Medicine
DX: S01.112A Laceration without foreign body of left eyelid and periocular area, initial encounter (principal); W18.30XA Fall on same level, unspecified, initial encounter; G30.9 Alzheimer's disease, unspecified; F02.80 Dementia in other diseases classified elsewhere, unspecified severity, without behavioral disturbance, psychotic disturbance, mood disturbance, and anxiety; N18.9 Chronic kidney disease, unspecified; I12.9 Hypertensive chronic kidney disease with stage 1 through stage 4 chronic kidney disease, or unspecified chronic kidney disease; Z79.82 Long term (current) use of aspirin; Z23 Encounter for immunization
CPT/HCPCS: 12011; 70450; 72125; 90471; 90715; 99284; J2004

== ENCOUNTER 2025-04-19 23:19 | Emergency (ER) | payer MEDICARE, OTHER, SELFPAY ==
--- NOTE | ~2025-04-19 | XR_ITS ---
EXAMINATION: [id number] DATE: 04/20/2025 00:35 INDICATION: Fall TECHNIQUE: A frontal inspiratory view of the chest and 3 views of the left ribs were obtained. COMPARISON: None FINDINGS: No rib fractures identified. No pneumothorax. No focal airspace opacities, pulmonary edema or pleural effusion. Heart size is normal. Severe lumbar spondylosis.. IMPRESSION: 1. No rib fracture or acute cardiopulmonary disease. Reviewed, dictated and finalized at location A.
[2025-04-19 23:20] VITALS: BP 106/58; PULSE 73; RESP 16; TEMP 36.4; O2SAT 95
[2025-04-19 23:29] VITALS: BP 106/58; PULSE 74; RESP 17; TEMP 36.6; O2SAT 96
--- NOTE | 2025-04-19 23:34 | ECG_ITS ---
Test Date: 2025-04-19 23:28:45 Measurements Intervals [place] Rate: 74 P: 55 [place]: 232 QRS: 44 QRSD: 94 T: 65 QT: 402 QTc: 447 Interpretive Statements SINUS RHYTHM WITH FIRST DEGREE AV BLOCK CANNOT R/O SEPTAL INFARCT, AGE INDETERMINATE BASELINE ARTIFACT- I, II, III, AVR, AVL, AVF, V1-V2, V4 ABNORMAL ECG No previous ECG available for comparison Electronically Signed On 04-20-2025 08:15:41 CDT by Billy Joel D.O.
--- NOTE | 2025-04-19 23:46 | PC.NURSE ---
Patient's son arrives and states pt is a DNR and on hospice so he does not want him to have any labs or CT scans.
[2025-04-20 00:08] VITALS: BP 107/86; PULSE 71; RESP 16; O2SAT 95
--- NOTE | 2025-04-20 00:12 | ED_ITS ---
HPI - Fall General Chief Complaint: Fall Stated Complaint: unwitnessed fall Time Seen by Provider: 04/19/25 23:31 History of Present Illness HPI Narrative: 84-year-old male who has a history of severe Alzheimer's dementia presents to the ED via EMS from [facility] in place for a unwitnessed ground level fall. Patient's son/POA, Rick, is at bedside to assist with history. Patient's son states that he was watching the camera in the patient's room and saw the patient get out of his recliner to use the bathroom, lost his balance and fell backwards, hitting the chair and ground. He did hit his head, no LOC. The patient immediately yelled for help in it took 7 minutes for prison staff to come and assist the patient off the floor. Patient is a hospice patient with [facility] and is comfort care. Mag states the patient's hospice nurse was notified and she was on her way to the facility when the prison contacted EMS and had the patient transported to the ED. He presents with a laceration to his forehead and large skin tear to the left arm. Per chart review Tdap is up-to- date. The patient is also endorsing pain to the left posterior lateral ribs with overlying bruising, pain is worse with inspiration. Denies any other injury. Related Data Allergies Allergy/AdvReac Type Severity Reaction Status Date / Time aspirin Allergy Unknown Unknown Verified 01/10/25 00:39 NSAIDS (Non-Steroidal Allergy Unknown Unknown Verified 01/10/25 00:39 Anti-Inflamma Review of Systems Review of Systems: All systems reviewed & are unremarkable except as noted in HPI and below Exam Narrative: GENERAL: Elderly male lying in exam bed, NAD HEAD: Normocephalic EYES: PERRLA and EOMI. ENT: Nares clear, no rhinorrhea or epistaxis. Mucous membranes moist. NECK: C-collar in place CHEST: Clear to auscultation. No respiratory distress. Tenderness to the left posterior lateral ribs with ecchymosis. No crepitus or deformities HEART: Regular rate and rhythm. No murmur heard. Normal peripheral pulses. ABDOMEN: Soft, nontender, nondistended, normal active bowel sounds. EXTREMITIES: No tenderness to upper lower extremities, full range of motion of all extremities SKIN: 3 cm linear laceration to the forehead with no active bleeding. Large superficial skin tear extending the length of the left forearm with no active bleeding, deep structures or foreign bodies visualized. NEURO: No focal deficits. Alert and oriented x0. Following commands Course Vital Signs Vital signs: Vital Signs Temperature 97.6 F 04/19/25 23:20 Pulse Rate 73 04/19/25 23:20 Respiratory Rate 16 04/19/25 23:20 Blood Pressure 106/58 L 04/19/25 23:20 Pulse Oximetry 95 04/19/25 23:20 Oxygen Delivery Room Air 04/19/25 23:20 Temperature 97.9 F 04/19/25 23:29 Pulse Rate 71 04/20/25 01:18 Respiratory Rate 19 04/20/25 01:18 Blood Pressure 132/84 04/20/25 01:18 Pulse Oximetry 95 04/20/25 01:18 Oxygen Delivery Room Air 04/19/25 23:20 Procedures Laceration Laceration 1: Date: 04/20/25 Time: 01:32 Site: face Side (If applicable): left Size (cm): 3 Description: linear Depth: simple, single layer Pre-repair: wound explored, irrigated and irrigated extensively ====== Skin Level ====== Skin layer closed with: dermabond and steri strips ====== Subcutaneous Layer ====== ====== Muscle Layer ====== ====== Tendon Layer ====== MDM - Fall MDM Narrative Medical decision making narrative: 84-year-old male with history of severe dementia who is A&O times 0 at baseline, who is on comfort care and hospice, presents to the ED via EMS from [facility] for a GLF that ocurred this evening. Fall was unwitnessed by staff but caught on camera. Video shown to me by patient's son/POA at bedside which shows the patient getting up from a recliner to go to the bathroom, patient lost his balance and fell backwards and hit the ground and chair behind him. He did hit his head but no LOC. He is presenting with a laceration to his forehead and large skin tear to the left forearm. He is also reporting pain to the posterior lateral ribs that is worse with deep inspiration. Ecchymosis is noted to the left posterior lateral ribs on exam. I contacted patient's hospice nurse at [facility], Lindy Goodrich, who is aware of patient's fall tonight. She advises we obtained x-rays of the left ribs and close his lacerations and sent back to the nursing facility. Agrees to refrain from further advanced imaging such as CT brain and cervical spine, other imaging as needed and labs. Patient's son/POA at bedside is in agreement with this plan. Rib x-ray shows no acute pulmonary disease, no pneumothorax is seen. Heart size is normal size and there is no left rib fracture seen. Left arm skin tear was cleaned with normal saline and closed with antibiotic ointment, Telfa and Kerlix. Laceration of the forehead was irrigated with normal saline and closed with Steri-Strips and skin glue. The patient will be transferred back to [facility]. Discharge Plan Discharge Clinical Impression: Laceration, Skin tear Rib contusion Qualifiers: Encounter type: initial encounter Laterality: left Qualified Code(s): S20.212A - Contusion of left front wall of thorax, initial encounter Patient Disposition: Home Condition: Stable Instructions: Antibiotic Form, Laceration (ED), Skin Tear (ED), Rib Contusion (ED) Additional Instructions: Please keep the wounds clean and dry. Follow-up with hospice. Return to the emergency department if you develop any new or worsening symptoms. Patient Language: Setswana Follow-up/Referrals: Yuliet,Brody Dacosta MD [Primary Care Provider] -
--- OUTSIDE RECORDS SUMMARY | 2025-04-20 00:44 | XMS_ITS | Patient Health Record ---
Author Organization [facility] Address [address] [place], [place] [id number] Support Name Relationship Address Phone Monroe Dwyer Guarantor Unknown [phone] Reason For Referral No Information Plan Of Treatment No Information Insurance Providers Payer Name Payer Address Payer Phone Subscriber Number Group Number Insured Name Patient Relationship to Insured Coverage Start Date Coverage End Date Medicare Part B J5 WPS [address] [place] [address] [id number] Monroe Dwyer Self - patient is the insured [employer] [address] [place] [phone] [id number] Monroe Dwyer Self - patient is the insured
[2025-04-20 01:18] VITALS: BP 132/84; PULSE 71; RESP 19; O2SAT 95
[2025-04-20 02:00] VITALS: BP 126/72; PULSE 71; RESP 20; O2SAT 95
--- NOTE | 2025-04-20 02:20 | PC.NURSE ---
Attempted to call nurse report to [facility] twice with no answer.
== END 2025-04-20 02:10 | disposition hospice, home (50) ==
PROVIDERS: Emergency Provider Physician Assistant; PCP Family Medicine
DX: S01.81XA Laceration without foreign body of other part of head, initial encounter (principal); S20.212A Contusion of left front wall of thorax, initial encounter; G30.9 Alzheimer's disease, unspecified; F02.C0 Dementia in other diseases classified elsewhere, severe, without behavioral disturbance, psychotic disturbance, mood disturbance, and anxiety; W18.39XA Other fall on same level, initial encounter
CPT/HCPCS: 12013; 71101; 93005; 99283